=== PATIENT | female | born 1980 | race Caucasian/White ===

== ENCOUNTER → 2018-01-17 | Outpatient (CLI) | payer OTHER | LOC: FIMAGING 07:18 | PROVIDERS: ATTEND Advanced Practice Midwife | DX: O09.512 Supervision of elderly primigravida, second trimester (principal); Z3A.20 20 weeks gestation of pregnancy ==

== ENCOUNTER → 2018-04-19 | Outpatient (CLI) | payer OTHER | LOC: FIMAGING 07:15 | PROVIDERS: ATTEND Family Medicine | DX: R22.31 Localized swelling, mass and lump, right upper limb (principal) ==

== ENCOUNTER 2018-06-09 00:05 | Inpatient (IN) | payer OTHER ==
[2018-06-09] MEDS ORDERED: LIDOCAINE 1% 300 MG/30 ML SDV SC PRN (00:13)
[2018-06-09] MEDS ORDERED: MISOPROSTOL 200 MCG TAB PR PRN (00:13)
[2018-06-09] MEDS ORDERED: OXYTOCIN/RINGERS LACTATE 1,000 ML IV PRN (00:13)
[2018-06-09] MEDS ORDERED: EPSOM SALT 454 GM TP PRN (00:13)
[2018-06-09] MEDS ORDERED: IBUPROFEN 600 MG TAB PO PRN (00:13)
[2018-06-09] MEDS ORDERED: TERBUTALINE SULFATE 1 MG/ML VIAL IV PRN (00:13)
[2018-06-09] MEDS ORDERED: OLIVE OIL 118 ML BTL MISC PRN (00:13)
[2018-06-09] MEDS ORDERED: LR 1,000 ML IV PRN (00:13)
[2018-06-09] MEDS ORDERED: OXYTOCIN 10 UNIT/ML VIAL ONE (00:18)
[2018-06-09] MEDS ORDERED: LIDOCAINE 1% 300 MG/30 ML SDV ONE (00:18)
[2018-06-09] MEDS ORDERED: OLIVE OIL 118 ML BTL ONE (00:18)
[2018-06-09] MEDS ORDERED: AMMONIA AROMATIC 1 EACH AMP IH ONE (00:18)
[2018-06-09] MEDS ORDERED: TERBUTALINE SULFATE 1 MG/ML VIAL ONE (00:18)
[2018-06-09] MEDS ORDERED: MISOPROSTOL 200 MCG TAB ONE (00:19)
--- NOTE | 2018-06-09 00:40 | PDGENHP ---
History and Physical History and Physical: Care: [facility] HPI: Patient is a 38 yo with IUP @40-5 weeks that presents to [facility] for pain relief. She states labor started this morning around 0700 but was admitted to center around 1700. Minimal cervical change and poor coping, pt decided to transfer to [facility] for pain relief. She denies any LOF, VB. She reports +FM. EDC: 06/04/2018 which is based on LMP: 08/28/2017 which is known and consistent with Ultrasound at 10weeks. Her is complicated by: AMA Review of Systems: Constitutional: Denies any fever, chills, or fatigue HEENT: denies any visual changes, difficulty swallowing, hearing loss Cardiovascular: Denies any chest pain, palpitations, leg swelling Respiratory: denies any cough, wheezing, or shortness of breathe GI: Denies any nausea, vomiting, diarrhea, constipation : denies any dysuria, urgency, frequency, vaginal bleeding Musculoskeletal: denies any muscle or bone pain Skin: denies any rashes Neuro: denies any headache, seizures, lightheadedness, dizziness, or loss of consciousness Psychiatric: denies any depression, anxiety, or SI/HI thoughts HISTORY: Previous OB history: G1 Past medical history: none Past surgical history:appendectomy 1998 Social: Denies any alcohol, tobacco, or drug use. Family history: mother: HTN, father: CVD Medications: PNV Allergies (list reaction): codeine- GI LABS: Rh: B+ ABS: Neg Rubella: Immune HbsAg: NR HIV: NR VDRL: NR 1hr: 73 GC: Neg Chlamydia: Neg Pap: Normal GBS: negative PHYSICAL EXAM: Constitutional: WN, A&Ox3 HEENT: normocephalic atraumatic, supple Skin: Warm, dry, intact Heart: RRR, no murmur Chest: CTA-B Abdomen: Soft, nontender, gravid SVE: 4/90/-2 Extremities: no edema, negative homans sign Neuro: grossly normal Psych: normal affect assessment: FHT baseline 130 +accels, + decels, moderate variability Contractions: toco q 2 Assessment: 1) [id number] with IUP@40-5wks 2) active labor 3) GBS negative 4) Cat 2 FHR tracing Plan: 1) Admit to L&D 2) DENISE per pt request 3) reassess post DENISE Today's visit was approximately 45 min, of which >50% of visit 30 min, was spent face to face with pt on direct counseling/coordination of care.
[2018-06-09 00:45] LABS: PLATELET COUNT 148 10^3/uL (150-400)
[2018-06-09] MEDS ORDERED: fentaNYL 2MCG/ML/BUP 0.1% RTU 100 ML BAG EP ONE (01:07)
[2018-06-09] MEDS ORDERED: BUPIVACAINE 0.25% 30 ML SDV ONE (01:07)
[2018-06-09] MEDS ORDERED: PHENYLEPHRINE HCL 100 MCG/ML SYR ONE (01:08)
--- NOTE | 2018-06-09 01:11 | PREANESOB ---
Anesthesia Allergies/Adverse Reactions: Allergy/AdvReac Type Severity Reaction Status Date / Time No Known Allergies Allergy Unverified 06/09/18 00:13 Visit Medications: Generic Name Dose Route Start Last Admin Trade Name Sugar PRN Reason Stop Dose Admin Lactated Ringer's 1,000 mls @ 0 mls/hr 06/09/18 00:13 Lr IV 06/10/18 00:12 PRN PRN SEE PROTOCOL CONDITIONS Protocol Per Protocol Oxytocin/Lactated Ringer's 1,000 mls @ 125 mls/hr 06/09/18 00:13 Pitocin 20 Units/Lr (Premix) IV PRN PRN Post bleeding Ibuprofen 600 mg 06/09/18 00:13 Motrin PO ONCE PRN post , pain Lidocaine HCl 300 mg 06/09/18 00:13 Lidocaine Hcl 1% SC 12/06/18 00:12 ONCE PRN episiotomy Magnesium Sulfate 454 gm 06/09/18 00:13 Epsom Salt TP 12/06/18 00:12 Q1H PRN perineal discomfort Misoprostol 800 - 1,000 mcg 06/09/18 00:13 Cytotec UT ONCE PRN Vaginal Atony/Bleeding [place] Oil 118 ml 06/09/18 00:13 Sweet Oil MISC 12/06/18 00:12 ONCE PRN perineal massage Terbutaline Sulfate 0.25 mg 06/09/18 00:13 Brethine IV 12/06/18 00:12 ONCE PRN Tachysystole Discontinued Medications Generic Name Dose Route Start Last Admin Trade Name Sugar PRN Reason Stop Dose Admin Ammonia (Aromatic Spirit) Confirm 06/09/18 00:18 Ammonia Aromatic Administered 06/09/18 00:19 Dose 1 each IH .STK-MED ONE Bupivacaine HCl Confirm 06/09/18 01:07 Sensorcaine 0.25% Sdv Administered 06/09/18 01:08 Dose 30 ml .ROUTE .STK-MED ONE Fentanyl/Bupivacaine HCl Confirm 06/09/18 01:07 Fentanyl/Bupivacaine/Ns 2 Mcg/Ml 0.1% (Premix Administered 06/09/18 01:08 Dose 100 ml EP .STK-MED ONE Lidocaine HCl Confirm 06/09/18 00:18 Lidocaine Hcl 1% Administered 06/09/18 00:19 Dose 300 mg .ROUTE .STK-MED ONE Misoprostol Confirm 06/09/18 00:19 Cytotec Administered 06/09/18 00:20 Dose 1,000 mcg .ROUTE .STK-MED ONE [place] Oil Confirm 06/09/18 00:18 Sweet Oil Administered 06/09/18 00:19 Dose 118 ml .ROUTE .STK-MED ONE Oxytocin Confirm 06/09/18 00:18 Pitocin Administered 06/09/18 00:19 Dose 40 unit .ROUTE .STK-MED ONE Phenylephrine HCl Confirm 06/09/18 01:08 Neosynephrine Administered 06/09/18 01:09 Dose 1,000 mcg .ROUTE .STK-MED ONE Terbutaline Sulfate Confirm 06/09/18 00:18 Brethine Administered 06/09/18 00:19 Dose 1 mg .ROUTE .STK-MED ONE - Anesthesia History Response to Local Anesthetics: Not Applicable Anesthesia & Operative History: No Prior Problems Family Anesthesia History: Not Applicable - Social History Substance Use/Abuse: ETOH, Tobacco - Focused Exam Pulmonary: no respiratory distress Cardiovascular: regular rate and rhythym Labs: 06/09/18 00:20 - Plan Anesthetic Plan: lizzy Consent Signed and on Chart: Yes Patient/Guardian Understands and Agrees to Plan: Yes
[2018-06-09] MEDS ORDERED: ONDANSETRON 4 MG/2 ML VIAL IVP PRN ×2 (01:30→03:26)
[2018-06-09] MEDS ORDERED: fentaNYL 2MCG/ML/BUP 0.1% RTU 100 ML EP SCH (01:30)
[2018-06-09] MEDS ORDERED: PHENYLEPHRINE HCL 100 MCG/ML SYR IVP PRN ×2 (01:30→03:26)
[2018-06-09] MEDS ORDERED: LR 500 ML IV SCH (01:30)
[2018-06-09] MEDS ORDERED: NALOXONE HCL 0.4 MG/ML INJ IVP PRN ×2 (01:30→03:26)
--- NOTE | 2018-06-09 01:40 | POSTANESTH ---
Post Anesthetic Evaluation Cardiovascular Status: Normal, Stable, Similar to Pre-Op Cond Respiratory Status: Normal, Stable, Similar to Pre-op Cond. Level of Consciousness/Mental Status: Can Participate in Eval, Alert and Oriented Pain Control: Adequate, Prn Tx Ordered Nausea/Vomiting Control: Adequate, Prn Tx Ordered Complications Possibly Related to Anesthesia: None Noted
[2018-06-09] MEDS ORDERED: CITRIC ACID/SODIUM CITRATE 30 ML UDCUP ONE (02:24)
[2018-06-09] MEDS ORDERED: ceFAZolin 2 GM in D5W 100 ML IV ONE (02:30)
[2018-06-09] MEDS ORDERED: fentaNYL 100 MCG/2 ML INJ ONE (02:47)
[2018-06-09] MEDS ORDERED: morphINE PF 5 MG/10 ML INJ ONE (02:59)
[2018-06-09] MEDS ORDERED: HYDROmorphONE/DILAUDID 1 MG/ML INJ IVP PRN (03:26)
[2018-06-09] MEDS ORDERED: fentaNYL 100 MCG/2 ML INJ IVP PRN (03:26)
--- NOTE | 2018-06-09 03:34 | POSTOPPROG ---
Post Op Note Date of Operation: 06/09/18 Surgeon: Margaret Gore Counter Supply Worker: Christianne Carrington Anesthesiologist: Dr. Page Anesthesia: Epidural Pre-op Diagnosis: nonreassuring status remote from delivery Post-op Diagnosis: same Indication: nonreassuring status remote from delivery Procedure: primary low transverse section Findings: normal appearing uterus, tube, ovaries, fetus ROT Inf/Abcess present in the surg proc area at time of surgery?: No EBL: 500-1000 Total fluids administered: 1000 Complications: none
--- NOTE | 2018-06-09 03:36 | OBPROG ---
Labor Progress Note Assessment/Plan: Assessment: [id number] with IUP@40-5wks active labor cat 2 FHR tracing Thick MSF nonreassuring FHR tracing remote from delivery Plan: called/consulted Dr Margaret Gore to come to L&D for FHR Tracing 06/09/18 02:28 Subjective/Intrapartum Course: 06/09/18 02:29 Pt doing ok. finally comfortable with DENISE. denies any pain. Objective: 06/09/18 00:20 Patient ABO/Rh B POSITIVE 06/09/18 00:20 - SVE Dilation (cm): 4 Effacement (%): 90 Station: -2 Membranes: SROM Amniotic Fluid Color: Meconium Stained, Thick Meconium - Contraction Pattern Assessment Current Contraction Pattern: Regular - FHR Assessment G[place]son FHR (bpm): 130 (repetitive prolong decels) FHR Pattern Variability: Moderate FHR Category: 2 - Procedures Non-surgical Procedures: FSE, IUPC ICD10 Worksheet Patient Problems: Problems Problem Status Onset Labor and delivery, indication for care Acute Non-reassuring electronic monitoring tracing Acute Non-reassuring electronic monitoring tracing Acute Nuchal cord affecting delivery Acute Prolonged labor Acute Thick meconium stained amniotic fluid Acute - ICD10 Problem Qualifiers (1) Labor and delivery, indication for care (2) Thick meconium stained amniotic fluid (3) Nuchal cord affecting delivery
--- NOTE | 2018-06-09 03:46 | OBDEL ---
Info Type: Primary Presentation at Delivery: Vertex L&D Analgesia/Anesthesia Type: Epidural GBS+: No - Care Provider Product Handler/POULTRY KILLER: Shazia Haddad - Hospital Course Intrapartum: 06/09/18 02:29 Pt doing ok. finally comfortable with DENISE. denies any pain. Indications for Delivery: Spontaneous Labor (AROM, thick meconium) Vaginal Delivery - Labor and Delivery Amniotic Fluid Color: Meconium Stained, Thick Meconium Non-surgical Procedures: FSE, IUPC Cord Gases: Cord Gases Cord Blood PCO2 51.4 mmHg (37-60) 06/09/18 02:47 Cord Base Excess -9.8 mEq/L (-13.6--3.2) 06/09/18 02:47 Cord ABG pH 7.20 (7.10-7.37) 06/09/18 02:47 Cord VBG pH 7.25 (7.20-7.42) 06/09/18 02:47 Operative Report - Delivery Pre-op Diagnoses: Nonreassuring status remote from delivery Post-op Diagnoses: Nonreassuring status remote from delivery History of Prior Section: No Nulliparous Prior to Delivery: No Indications for Current Section: Non-reas. Status Procedure: Unscheduled (urgent) Surgeon: Margaret Gore Tumbling Barrel Painter: Christianne Carrington Anesthesiologist: Dillan Page Complications: Nucal Cord Findings: ROT presentation of fetus with one nuchal cord. IV Fluid (ml): 1,000 EBL: 800 Cord Gases: Cord Gases Cord Blood PCO2 51.4 mmHg (37-60) 06/09/18 02:47 Cord Base Excess -9.8 mEq/L (-13.6--3.2) 06/09/18 02:47 Cord ABG pH 7.20 (7.10-7.37) 06/09/18 02:47 Cord VBG pH 7.25 (7.20-7.42) 06/09/18 02:47 [place] Data LOIDA: 06/04/18 Gestational Age: 40 week(s) and 5 day(s) [place] Delivery Date: 06/09/18 Delivery Time: 02:42 Sex of Infant: Male Score (1 Min): 9 Score (5 Min): 9 ICD10 Worksheet Patient Problems: Problems Problem Status Onset Non-reassuring electronic monitoring tracing Acute Non-reassuring electronic monitoring tracing Acute Prolonged labor Acute - ICD10 Problem Qualifiers (1) Prolonged labor (2) Non-reassuring electronic monitoring tracing (3) Non-reassuring electronic monitoring tracing
[2018-06-09] MEDS ORDERED: MEPERIDINE 25 MG/0.5 ML AMP IVP ONE ×2 (03:50→03:51)
[2018-06-09] MEDS ORDERED: MEPERIDINE 25 MG/0.5 ML AMP ONE (04:08)
[2018-06-09] MEDS ORDERED: MEPERIDINE 25 MG/0.5 ML AMP IVP PRN (04:30)
--- NOTE | 2018-06-09 04:38 | GOP ---
DATE OF OPERATION: 06/09/2018 SURGEON: Margaret Gore MD PORTABLE IRRIGATION OPERATOR: Christianne Carrington CNM. ANESTHESIA: Epidural. ANESTHESIOLOGIST: Dillan Page MD PREOPERATIVE DIAGNOSIS: Nonreassuring status remote from delivery at 40 weeks and 5 days gestation. POSTOPERATIVE DIAGNOSIS: Nonreassuring status remote from delivery at 40 weeks and 5 days gestation. PROCEDURE PERFORMED: Primary low transverse section. FINDINGS: Normal-appearing uterus, tubes and ovaries. Fetus was in the right occiput transverse presentation. Apgars were 9 and 9. ESTIMATED BLOOD LOSS: 800 mL. INDICATIONS: This 38-year-old 1 female presented to this hospital for pain relief after laboring for hours at the Center. She was approximately 4 cm dilated. She received an epidural, and no progress had been made and heart rate decelerations became longer and more persistent, and I was consulted by the CNM, oLni Carrington, who admitted the patient, so the decision was made to proceed with a since we were remote from delivery. DESCRIPTION OF PROCEDURE: Written informed consent was obtained from the patient in the labor room. She was then taken to the operating room and placed in the dorsal supine position. heart rate tracing in the operating room again revealed heart rate decelerations down to the 60s and 70s for approximately 1 minute with contractions. Her epidural was appropriately dosed. A De La Vega catheter was placed. Her abdomen was sterilely prepared and draped in the standard fashion. A time-out was performed. 2 g of Ancef were given suction plate roller hand to the OR. An incision was made in the skin and taken down sharply to the fascia. The fascia was incised in the midline. The incision was extended sharply on both sides. The fascia was grasped and elevated, and the rectus muscles were dissected away bluntly and sharply in both the upper and lower aspects of the incision. The rectus muscles were in the midline. The peritoneum was entered bluntly. A bladder blade and Rich retractors were inserted. A bladder flap was created sharply and the bladder blade was replaced over the bladder flap. The hysterotomy was made and taken down sharply until there was release of thick meconium-stained fluid. The hysterotomy was extended laterally in a blunt fashion. The vertex was then able to be grasped and elevated out of the pelvis. Head was able to be flexed and then delivered through the hysterotomy. One nuchal cord was reduced. With fundal pressure, the remainder of the body was delivered. The nurse practitioner then requested immediate clamping and cutting of the cord so the could be handed off. This was performed. A cord segment was then obtained for cord gases. Cord blood was then obtained also. The uterus was massaged to deliver the placenta. The placenta appeared intact. The uterus was then exteriorized and cleared of all clots and debris x2. The hysterotomy was then closed in a running locked fashion with 0 Monocryl. A second imbricating layer with 0 Monocryl was placed. Cautery was used to obtain excellent hemostasis for any remaining small bleeders. The posterior cul -de-sac was irrigated and all clots were removed. The uterus was replaced into the abdomen. Once again, excellent hemostasis of the hysterotomy was noted. The fascia was then closed with 0 PDS in a running fashion. Yvonne fascia was then closed with 3-0 Monocryl in a running fashion. The skin was closed with 4- 0 Monocryl in a running subcuticular fashion and the incision was covered with Mastisol, and then Steri-Strips and a dressing were applied. Sponge, lap and needle counts were correct x2. The patient was taken to the recovery room in stable condition. TOTAL IV FLUIDS: 1000 mL. URINE OUTPUT: 100 mL. COMPLICATIONS: None. /[id number]/MODL MTDD
[2018-06-09] MEDS ORDERED: oxyCODONE IR 5 MG TAB PO PRN (09:31)
[2018-06-09] MEDS ORDERED: SIMETHICONE 80 MG TAB CHEW PO PRN (09:31)
[2018-06-09] MEDS ORDERED: DOCUSATE SODIUM 100 MG CAP PO PRN (09:31)
[2018-06-09] MEDS ORDERED: BISACODYL 10 MG SUPP PR PRN (09:33)
[2018-06-09] MEDS ORDERED: POLYETHYLENE GLYCOL 3350 17 GM PKT PO PRN (09:33)
[2018-06-09] MEDS ORDERED: LACTULOSE 20 GM/30 ML UDCUP PO PRN (09:33)
[2018-06-09] MEDS ORDERED: MAGNESIUM HYDROXIDE 30 ML UDCUP PO PRN (09:33)
[2018-06-09] MEDS: KETOROLAC 30 MG/1 ML SDV IVP SCH ×3 (10:08→21:20)
--- NOTE | 2018-06-09 10:56 | OBPP ---
Progress Note Assessment/Plan: Assessment: 38 y/o s/p LTCS for intolerance to labor 8 hours post op Plan: Routine pp/post op care Advance diet as tolerated D/C pedraza and remove dressing in shower later this evening or early in AM 06/10/18 15:48 Subjective/ Course: 06/10/18 15:52 Doing well. Tired. with support. Pain well controlled with Toradol. Tolerating liquids Objective: 06/09/18 00:20 Patient ABO/Rh B POSITIVE 06/09/18 00:20 Temp Pulse Resp BP Pulse Ox 36.6 C 72 11 L 95/57 L 93 06/09/18 08:30 06/09/18 08:30 06/09/18 05:35 06/09/18 08:30 06/09/18 08:30 Uterine Position/Fundal Height: At Umbilicus Uterine Tone: Firm Physical Exam - Physical Exam EENT: PERRL/EOMI, normal ENT inspection Neck: full range of motion Respiratory: lungs clear Cardiac/Chest: regular rate, rhythm Abdomen: hypoactive bowel sounds Extremities: normal range of motion Skin: normal color, warm/dry Neuro/Psych: no motor/sensory deficits, alert, normal mood/affect, oriented x 3
[2018-06-09] MEDS: IBUPROFEN 600 MG TAB PO SCH ×2 (16:16→22:15)
[2018-06-09] MEDS: ACETAMINOPHEN 325 MG TAB PO SCH ×2 (16:17→21:20)
--- NOTE | 2018-06-09 17:24 | OBPP ---
Progress Note Assessment/Plan: Assessment: s/p PCS secondary to nonreassuring status remote from delivery POD # 0 - pt is stable Plan: Continue routine post-op care Encourage IS and ambulation H/H in am 06/10 Continue to work with I/Os good Chiqui po, heplock IV 06/09/18 17:25 Subjective/ Course: 06/09/18 17:22 Pt seen and examined. She fell asleep for about an hour and feels better. Pain is overall well controlled. Pt has dangled from the bed with no issues, chiqui regular diet, pedraza in place, no flatus. Denies any f/c/n/v/CP or SOB. Mod lochia. No calf tenderness. Working on , not going so well. Objective: 06/09/18 00:20 Patient ABO/Rh B POSITIVE 06/09/18 00:20 Temp Pulse Resp BP Pulse Ox 36.8 C 79 16 96/60 L 95 06/09/18 13:30 06/09/18 13:30 06/09/18 16:19 06/09/18 13:30 06/09/18 16:19 Uterine Position/Fundal Height: Umbilicus -2 Uterine Tone: Firm Physical Exam - Physical Exam General Appearance: alert, no apparent distress, mild distress Respiratory: lungs clear, normal breath sounds Cardiac/Chest: regular rate, rhythm Abdomen: normal bowel sounds, non-tender, soft, incision (C/D/I with dressing in place), dressing (C/D/I without shadowing) Extremities: non-tender, normal inspection (with SCDs) Skin: normal color, warm/dry Neuro/Psych: alert, normal mood/affect, oriented x 3
[2018-06-09] MEDS: SENNOSIDES/DOCUSATE SODIUM TAB PO SCH (21:20)
[2018-06-10] MEDS: KETOROLAC 30 MG/1 ML SDV IVP SCH (03:18)
[2018-06-10] MEDS: IBUPROFEN 600 MG TAB PO SCH ×4 (03:28→21:58)
[2018-06-10] MEDS: ACETAMINOPHEN 325 MG TAB PO SCH ×4 (03:28→21:58)
[2018-06-10] MEDS: SENNOSIDES/DOCUSATE SODIUM TAB PO SCH ×2 (09:59→21:58)
[2018-06-10] MEDS: FERROUS SULFATE 325 MG TAB PO SCH (13:01)
--- NOTE | 2018-06-10 15:58 | OBPP ---
Progress Note Assessment/Plan: Assessment: 38 y/o s/p LTCS for intolerance to labor POD #1 with lacatation support Pain well controlled with oral pain meds Voiding without difficulty Tolerating regular diet Plan: Routine pp/post op care Encourage activity/walking in flores as tolerated Continue support with 06/10/18 15:48 06/10/18 15:55 Subjective/ Course: 06/10/18 15:52 Doing well. Tired. with support. Pain well controlled with Toradol. Tolerating liquids 06/10/18 15:57 Doing well. Pain well controlled, tolerating regular diet, voiding without problem and tolerating walking in room. Vag bleeding WNL. Objective: 06/10/18 05:50 Patient ABO/Rh B POSITIVE 06/09/18 00:20 Temp Pulse Resp BP Pulse Ox 36.3 C 87 16 96/63 L 94 06/10/18 10:00 06/10/18 10:00 06/10/18 10:00 06/10/18 10:00 06/10/18 10:00 Uterine Position/Fundal Height: Umbilicus -2 Uterine Tone: Firm Physical Exam - Physical Exam EENT: PERRL/EOMI Neck: non-tender Respiratory: lungs clear Cardiac/Chest: regular rate, rhythm Abdomen: normal bowel sounds, flatus, incision (well approximated, steri strips in place) Extremities: normal range of motion Back: Normal inspection Skin: normal color, warm/dry Neuro/Psych: no motor/sensory deficits, alert, normal mood/affect, oriented x 3
[2018-06-10] MEDS ORDERED: TDAP ADULT 0.5 ML INJ (BOOSTRIX) IM ONE (17:21)
[2018-06-11] MEDS: ACETAMINOPHEN 325 MG TAB PO SCH ×5 (04:03→23:56)
[2018-06-11] MEDS: IBUPROFEN 600 MG TAB PO SCH ×5 (04:03→23:57)
[2018-06-11] MEDS: SENNOSIDES/DOCUSATE SODIUM TAB PO SCH ×2 (09:15→20:29)
[2018-06-11] MEDS: FERROUS SULFATE 325 MG TAB PO SCH (09:15)
--- NOTE | 2018-06-11 11:17 | OBPP ---
Progress Note Assessment/Plan: Assessment: 38 y/o s/p LTCS for intolerance to labor POD #2 with lacatation support going well Pain well controlled with oral pain meds Voiding without difficulty Tolerating regular diet Plan: Routine pp/post op care Encourage activity/walking in flores as tolerated Plan d/c home tomorrow 06/10/18 15:48 06/10/18 15:55 06/11/18 11:13 Subjective/ Course: 06/10/18 15:52 Doing well. Tired. with support. Pain well controlled with Toradol. Tolerating liquids 06/10/18 15:57 Doing well. Pain well controlled, tolerating regular diet, voiding without problem and tolerating walking in room. Vag bleeding WNL. 06/11/18 11:14 Doing well this AM. Pain well controlled with oral pain meds. Voiding, toleration activity and regular diet -first BM today. going well. Objective: 06/10/18 05:50 Patient ABO/Rh B POSITIVE 06/09/18 00:20 Temp Pulse Resp BP Pulse Ox 36.8 C 82 16 96/54 L 93 06/10/18 20:00 06/10/18 20:00 06/10/18 20:00 06/10/18 20:00 06/10/18 20:00 Uterine Position/Fundal Height: Umbilicus -2 Uterine Tone: Firm Physical Exam - Physical Exam EENT: PERRL/EOMI Neck: non-tender Respiratory: normal breath sounds Cardiac/Chest: regular rate, rhythm Abdomen: normal bowel sounds, incision (well approximated - steri-strips intact ) Extremities: normal range of motion, non-tender Back: Normal inspection Skin: normal color, warm/dry Neuro/Psych: no motor/sensory deficits, alert, normal mood/affect, oriented x 3
[2018-06-12] MEDS: ACETAMINOPHEN 325 MG TAB PO SCH ×2 (05:59→12:39)
[2018-06-12] MEDS: IBUPROFEN 600 MG TAB PO SCH ×2 (05:59→12:40)
[2018-06-12] MEDS: FERROUS SULFATE 325 MG TAB PO SCH (10:12)
[2018-06-12] MEDS: SENNOSIDES/DOCUSATE SODIUM TAB PO SCH (10:12)
--- NOTE | 2018-06-12 10:30 | OBPP ---
Progress Note Assessment/Plan: Assessment: Plan: Subjective/ Course: 06/10/18 15:52 Doing well. Tired. with support. Pain well controlled with Toradol. Tolerating liquids 06/10/18 15:57 Doing well. Pain well controlled, tolerating regular diet, voiding without problem and tolerating walking in room. Vag bleeding WNL. 06/11/18 11:14 Doing well this AM. Pain well controlled with oral pain meds. Voiding, toleration activity and regular diet -first BM today. going well. 06/12/18 10:30 Doing well, ambulating in hallway. Breast feeding well. Breasts mildly engorged. Plan d/c home today. Objective: 06/10/18 05:50 Patient ABO/Rh B POSITIVE 06/09/18 00:20 Temp Pulse Resp BP Pulse Ox 36.2 C 78 16 105/67 95 06/11/18 20:00 06/11/18 20:00 06/11/18 20:00 06/11/18 20:00 06/11/18 20:00 VSS today. Uterine Position/Fundal Height: At Umbilicus Uterine Tone: Firm
--- NOTE | 2018-06-12 10:31 | OBGCSDC ---
General Delivery Information - General Info : 1 Para: 1 Abortions: 0 Type: Primary L&D Analgesia/Anesthesia Type: Epidural Admission Date: 06/09/18 Labs: Patient ABO/Rh B POSITIVE 06/09/18 00:20 Hct 34.3 % (38.0-47.0) L 06/10/18 05:50 - Hospital Course Intrapartum: 06/09/18 02:29 Pt doing ok. finally comfortable with DENISE. denies any pain. : 06/10/18 15:52 Doing well. Tired. with support. Pain well controlled with Toradol. Tolerating liquids 06/10/18 15:57 Doing well. Pain well controlled, tolerating regular diet, voiding without problem and tolerating walking in room. Vag bleeding WNL. 06/11/18 11:14 Doing well this AM. Pain well controlled with oral pain meds. Voiding, toleration activity and regular diet -first BM today. going well. 06/12/18 10:30 Doing well, ambulating in hallway. Breast feeding well. Breasts mildly engorged. Plan d/c home today. Vaginal - Diagnosis Amniotic Fluid Color: Meconium Stained, Thick Meconium - Procedures Non-surgical Procedures: FSE, IUPC - Delivery Providers Surgeon: Margaret Gore Labor Training Manager: Christianne Carrington Anesthesiologist: Dillan Page - Delivery Indications for Current Section: Non-reas. Status Non-surgical Procedures: FSE, IUPC Surgical Procedures: Emergent Data LOIDA: 06/04/18 Gestational Age: 41 week(s) and 1 day(s) [place] Delivery Date: 06/09/18 Delivery Time: 02:41 Sex of Infant: Male Weight (gm): 3028 kg Score (1 Min): 9 Score (5 Min): 9 Discharge Information - Discharge Information Condition: Good Instruction/Follow Up: Two Weeks, Four Weeks, Six Weeks
[2018-06-12 11:43] VITALS: BP 104/64
== END 2018-06-12 13:59 | disposition home or self-care (01) | DRG 788 ==
LOC: FLD 00:05 → FOB 05:58
PROVIDERS: ADMIT Advanced Practice Midwife; ATTEND Hospitalist
PROC: 10D00Z1 Extraction of Products of Conception, Low, Open Approach (ICD-10-PCS; principal; 2018-06-09)
DX: O77.0 Labor and delivery complicated by meconium in amniotic fluid (principal); O32.2XX0 Maternal care for transverse and oblique lie, not applicable or unspecified; O76 Abnormality in fetal heart rate and rhythm complicating labor and delivery; Z3A.40 40 weeks gestation of pregnancy; Z37.0 Single live birth
CPT/HCPCS: J0690; J1885; J2175; J2274; J2370; J2590; J3010; J3105